=== PATIENT | female | born 1955 | race Caucasian/White ===

== ENCOUNTER 2021-05-13 15:21 | Emergency (ER) | payer BC ==
[2021-05-13 16:15] VITALS: BP 179/78; PULSE 66; TEMP 97.7; BMI 26.4
[2021-05-13] MEDS ORDERED: ONDANSETRON *ODT* 4 MG TABLET SL ONE (17:07)
[2021-05-13] MEDS ORDERED: ONDANSETRON *ODT* 4 MG TABLET ONE (17:19)
[2021-05-13] MEDS ORDERED: LACTATED RINGERS SOLUTION 1000 ML INFUS.BAG IV ONE (17:45)
== END 2021-05-13 18:00 | disposition left against medical advice (07) ==
LOC: JER 15:21
DX: R68.83 Chills (without fever) (principal); R11.0 Nausea
CPT/HCPCS: 93005; 93010; 99284-25